=== PATIENT | female | born 1940 | race Caucasian/White ===

== ENCOUNTER 2018-04-29 12:59 | Observation (INO) | payer OTHER, MEDICAID ==
[~2018-04-29] VITALS: Ht 157.5 cm; Wt 81.4 kg
[2018-04-29 13:08] VITALS: Ht 157.5 cm; Wt 81.4 kg
[2018-04-29 13:55] LABS: BASOPHIL % 1.1 % (0-2); PLATELET COUNT 268 x10^3mcL (130-400)
[2018-04-29 13:58] LABS: RED CELL DISTRIBUTION WIDTH 15.3 % (11.5-14.5)
[2018-04-29 14:17] LABS: ALBUMIN 3.3 g/dL (3.4-5.0); ALKALINE PHOSPHATASE 62 U/L (46-116); ALT/SGPT 22 U/L (14-59); AST/SGOT 15 U/L (15-37); BILIRUBIN TOTAL 0.19 mg/dL (0.20-1.00); CALCIUM 9.3 mg/dL (8.5-10.1); CARBON DIOXIDE 29.2 mmol/L (21-32); CHLORIDE SERUM 104 mmol/L (98-107); CREATININE SERUM 1.3 mg/dL (0.6-1.0); GLUCOSE SERUM 122 mg/dL (74-106); SODIUM SERUM 139 mmol/L (136-145)
[2018-04-29 14:19] LABS: POTASSIUM SERUM 5.6 mmol/L (3.5-5.1)
[2018-04-29] MEDS ORDERED: MECLIZINE HYD12.5 MG PO (18:42)
[2018-04-29] MEDS ORDERED: METFORMIN HCL500 MG PO (18:42)
[2018-04-29] MEDS ORDERED: GOOD SENSE OMEP20 MG PO (18:43)
[2018-04-29] MEDS ORDERED: ATENOLOL/CHLORT1 TA1 PO (18:43)
[2018-04-29] MEDS ORDERED: GABAPENTIN100 M2 PO (18:43)
[2018-04-29] MEDS ORDERED: JANUMET 50-1,01 EACH PO (18:43)
[2018-04-29] MEDS ORDERED: HCTZ/LISINOPRIL1 TA1 PO (18:44)
[2018-04-29] MEDS ORDERED: CLOPIDOGREL75 M1 PO (18:44)
[2018-04-29] MEDS ORDERED: LEVOTHYROXIN0.025 M2 PO (18:44)
[2018-04-29] MEDS ORDERED: VITAMIN D3 COM1 EACH PO (18:45)
[2018-04-29] MEDS ORDERED: NATURE'S BLEND500 M3 PO (18:45)
[2018-04-29] MEDS ORDERED: NAPROSYN500 MG PO (18:45)
[2018-04-29] MEDS ORDERED: TRICOR145 M1 PO (18:46)
[2018-04-29] MEDS ORDERED: GLIMEPIRIDE1 M1 PO (18:46)
[2018-04-29] MEDS ORDERED: D-20001 TAB (20:35)
[2018-04-29 23:50] VITALS: BP 142/46
[2018-04-30 05:21] VITALS: BP 101/50
[2018-04-30 06:54] LABS: BASOPHIL % 0.7 % (0-2); PLATELET COUNT 243 x10^3mcL (130-400)
[2018-04-30 07:07] LABS: CALCIUM 9.3 mg/dL (8.5-10.1); CARBON DIOXIDE 35.3 mmol/L (21-32); CHLORIDE SERUM 105 mmol/L (98-107); CREATININE SERUM 1.6 mg/dL (0.6-1.0); GLUCOSE SERUM 88 mg/dL (74-106); POTASSIUM SERUM 4.3 mmol/L (3.5-5.1); SODIUM SERUM 143 mmol/L (136-145)
[2018-04-30 08:23] LABS: RED CELL DISTRIBUTION WIDTH 15.3 % (11.5-14.5)
[2018-04-30 09:17] VITALS: BP 110/48
[2018-04-30 11:01] VITALS: BP 115/43
[2018-04-30] MEDS ORDERED: AZITHROMYCIN1 GM PO (13:15)
[2018-04-30] MEDS ORDERED: PHEDML PO (13:16)
[2018-04-30] MEDS ORDERED: PREDNISONE20 MG PO (13:17)
[2018-04-30 13:43] VITALS: BP 130/58
[2018-04-30 15:03] VITALS: BP 130/58
== END 2018-04-30 16:23 | disposition home or self-care (01) | DRG 202 ==
LOC: ED 12:59 → DU 17:43 → EDBEDREQ 17:45 → DU 22:54
PROVIDERS: Emergency Medicine; ADMIT Internal Medicine
DX: J20.9 Acute bronchitis, unspecified (principal); I13.0 Hypertensive heart and chronic kidney disease with heart failure and stage 1 through stage 4 chronic kidney disease, or unspecified chronic kidney disease; I50.42 Chronic combined systolic (congestive) and diastolic (congestive) heart failure; E11.649 Type 2 diabetes mellitus with hypoglycemia without coma; E11.22 Type 2 diabetes mellitus with diabetic chronic kidney disease; N18.3 Chronic kidney disease, stage 3 (moderate); E78.5 Hyperlipidemia, unspecified; E66.9 Obesity, unspecified
CPT/HCPCS: 82962; 83880; 85378; 87804; 90658; G0378; J1644; J1940; J2405; J3490; Q0092; Q0169; Q9967